=== PATIENT | male | born 1995 | race Caucasian/White ===

== ENCOUNTER 2018-10-15 00:47 | Emergency (ER) | payer SELFPAY ==
--- NOTE | 2018-10-15 01:37 | PDOC ---
History of Present Illness - General Chief Complaint: Palpitations Stated Complaint: CHEST PAIN,PALPITATIONS Time Seen by Provider: 10/15/18 01:37 History Source: Patient Exam Limitations: No Limitations - History of Present Illness Initial Comments: 10/15/18 02:20 23 year old male with PMH anxiety/panic disorder, chronic lymes disease, nicotine smoker (vape) presented to ED for chest pain, palpitations, shortness of breath x3 days. Pt stated his symptoms occur after vaping, and he vapes >10X a day. He stated he currently smokes 20 mg and is trying to decrease his dose. Pt stated his symptoms are intermittent. Pt stated his chest pain is left sided , intermittent, nonradiating, no alleviating factors, aggravated by nicotine. Allergies: NKDA Past History - Past Medical History Allergies/Adverse Reactions: Allergies Allergy/AdvReac Type Severity Reaction Status Date / Time No Known Allergies Allergy Verified 10/15/18 01:47 - Immunization History Immunization Up to Date: Yes - Suicide/Smoking/Psychosocial Hx Smoking Status: Yes Smoking History: Current some day smoker Years of Tobacco Use: 1 Number of Cigarettes Smoked Daily: 2 Review of Systems - Review of Systems Able to Perform ROS?: Yes Comments:: 10/15/18 02:26 General: admitted to generalized weakness. denied fever, chills, night sweats. HEENT: denied sore throat, rhinorrhea, ear pain. Heart: admitted to chest pain, palpitations. denied syncope, lower extremity swelling, diaphoresis. Respiratory: admitted to shortness of breath. denied cough, sputum production, hemoptysis. Abdomen: denied abdominal pain, nausea, vomiting, diarrhea, constipation, blood in stool. : denied dysuria, increased urinary frequency, hematuria, urinary incontinence , flank pain. Back: denied back pain. Musculoskeletal: denied joint pain, muscle pain, joint swelling. Neurological: denied headache, dizziness, numbness, tingling, weakness. Skin: denied rash, laceration, abrasion. *Physical Exam - Physical Exam Comments: 10/15/18 02:27 Constitutional: Well-nourished, Well-developed, appearing stated age. slender, tall. HEENT: head is normocephalic, atraumatic. EOMI. PERRLA. Neck: supple. Full ROM. Heart: regular rhythm. no murmurs, rubs or gallops. Lungs: clear to auscultation bilaterally. no crackles, rhonchi or wheezing. no stridor. Abdomen: soft, nontender. normal bowel sounds. no rebound, guarding, masses. Extremities: Peripheral pulses intact. No lower extremity edema. Neurological: CN 2-12 grossly intact. Moves all four extremities. Psych: awake, alert, oriented x3. Follows commands. Answers questions appropriately. ED Treatment Course - LABORATORY CBC & Chemistry Diagram: 10/15/18 01:46 10/15/18 01:46 Medical Decision Making - Medical Decision Making 10/15/18 02:28 23 year old male with above PMh presented to ED for chest pain, shortness of breath, palpitations. Initial Vital Signs Temp Pulse Resp BP Pulse Ox 98.0 F 90 18 143/96 99 10/15/18 00:48 10/15/18 00:48 10/15/18 00:48 10/15/18 00:48 10/15/18 00:48 Afebrile. No tachycardia. No tachypnea. Mild hypertension. No hypoxia on room air. EKG performed at 0053: rate 88, regular rhythm, normal axis, normal intervals, no acute ST changes. Labs ordered: CBC, BMP, TSH Imaging ordered: CXR Medications ordered: none 10/15/18 02:40 CBC WBC 6.1 K/mm3 (4.0-10.0) 10/15/18 01:46 RBC 4.46 M/mm3 (4.00-5.60) 10/15/18 01:46 Hgb 14.3 GM/dL (11.7-16.9) 10/15/18 01:46 Hct 40.8 % (35.4-49) 10/15/18 01:46 MCV 91.4 fl (80-96) 10/15/18 01:46 MCH 32.2 pg (25.7-33.7) 10/15/18 01:46 MCHC 35.2 g/dl (32.0-35.9) 10/15/18 01:46 RDW 13.0 % (11.9-15.9) 10/15/18 01:46 Plt Count 209 K/MM3 (134-434) 10/15/18 01:46 MPV 7.0 fl (7.5-11.1) L 10/15/18 01:46 Absolute Neuts (auto) 3.5 K/mm3 (1.5-8.0) 10/15/18 01:46 Neutrophils % 56.5 % (42.8-82.8) 10/15/18 01:46 Lymphocytes % 28.7 % (8-40) 10/15/18 01:46 Monocytes % 7.3 % (3.8-10.2) 10/15/18 01:46 Eosinophils % 6.7 % (0-4.5) H 10/15/18 01:46 Basophils % 0.8 % (0-2.0) 10/15/18 01:46 Nucleated RBC % 0 % (0-0) 10/15/18 01:46 No leukocytosis. No anemia. Increased eosinophils. CMP Sodium 139 mmol/L (136-145) 10/15/18 01:46 Potassium 3.7 mmol/L (3.5-5.1) 10/15/18 01:46 Chloride 106 mmol/L (98-107) 10/15/18 01:46 Carbon Dioxide 24 mmol/L (21-32) 10/15/18 01:46 Anion Gap 9 MMOL/L (8-16) 10/15/18 01:46 BUN 21 mg/dL (7-18) H 10/15/18 01:46 Creatinine 0.9 mg/dL (0.55-1.3) 10/15/18 01:46 Creat Clearance w eGFR > 60 (>60) 10/15/18 01:46 Random Glucose 85 mg/dL (74-106) 10/15/18 01:46 Calcium 8.7 mg/dL (8.5-10.1) 10/15/18 01:46 TSH 1.92 uIU/ml (0.358-3.74) 10/15/18 01:46 Normal electrolytes. No ROMINA. Normal TSH. 10/15/18 03:41 CXR: sharp costophrenic angles. no large pneumothorax. no cardiomegaly. no infiltrate. Pt reassessed, reported 0/10 chest pain, no palpitations. Pt stated he is feeling better and would like to go home. Pt has been observed in the ED for 3 hours. EKG normal, labs normal, CXR normal. Pt to be discharged and follow up with PCP. Pt informed of cardiovascular risks of smoking and advised to stop using the vaporizer. 10/15/18 20:45 CXR official report: negative for acute pathology. *DC/Admit/Observation/Transfer Diagnosis at time of Disposition: Chest pain, Palpitations - Discharge Dispostion Disposition: HOME Condition at time of disposition: Improved Decision to Admit order: No - Referrals - Patient Instructions Printed Discharge Instructions: DI for Palpitations Additional Instructions: Your lab work was normal. Your EKG was normal. Your chest X-ray was normal. Follow up with your primary care doctor in 1-2 days. Do not use the vaporizer to smoke. Consult with your primary care doctor to discuss stopping nicotine use. Nicotine use over time will damage your lungs permanently and puts you at an increased risk for cancer. Return to the Emergency Department for chest pain , shortness of breath, palpitations, racing heart, passing out, lightheadedness , or any other new, worsening or concerning symptoms. - Post Discharge Activity
[2018-10-15 01:47] VITALS: BP 143/96; PULSE 90; TEMP 98; BMI 16.2
[2018-10-15 02:01] LABS: BASO % 0.8 % (0-2.0); EOS % 6.7 % (0-4.5); HEMATOCRIT 40.8 % (35.4-49); HEMOGLOBIN 14.3 GM/dL (11.7-16.9); LYMPH % 28.7 % (8-40); MCH 32.2 pg (25.7-33.7); MCHC 35.2 g/dl (32.0-35.9); MEAN CELL VOLUME 91.4 fl (80-96); MONO % 7.3 % (3.8-10.2); NEUT % 56.5 % (42.8-82.8); PLATELET COUNT 209 K/MM3 (134-434); RBC 4.46 M/mm3 (4.00-5.60); WHITE BLOOD COUNT 6.1 K/mm3 (4.0-10.0)
--- NOTE | 2018-10-15 02:28 | PDOC ---
Attending Attestation - Resident Resident Name: Rebekah Freitas - ED Attending Attestation I have performed the following: I have examined & evaluated the patient, The case was reviewed & discussed with the resident, I agree w/resident's findings & plan, Exceptions are as noted - HPI HPI: 10/15/18 05:44 23M c/o episodes of chest pain, palpitations, sob a/w vaping. Episodes are self -limited and triggered by smoking. No other complaints. Pt currently comfortable - Physicial Exam PE: 10/15/18 05:44 Agree with exam as documented by resident - Medical Decision Making 10/15/18 05:45 Palpitations, cp, sob a/w inhaled nicotine, likely drug effect, consider anxiety , electrolyte abnormality, thyroid pathology, arrythmia f/u labs, cxr, ekg
[2018-10-15 02:37] LABS: ANION GAP 9 MMOL/L (8-16); BLOOD UREA NITROGEN 21 mg/dL (7-18); CALCIUM 8.7 mg/dL (8.5-10.1); CHLORIDE 106 mmol/L (98-107); CO2 24 mmol/L (21-32); CREATININE 0.9 mg/dL (0.55-1.3); GLUCOSE,RANDOM 85 mg/dL (74-106); POTASSIUM 3.7 mmol/L (3.5-5.1); SODIUM 139 mmol/L (136-145)
--- NOTE | 2018-10-15 09:09 | EKG ---
Test Reason : Blood Pressure : / mmHG Vent. Rate : 088 BPM Atrial Rate : 088 BPM P-R Int : 122 ms QRS Dur : 088 ms QT Int : 366 ms P-R-T Axes : 062 065 060 degrees QTc Int : 442 ms NORMAL SINUS RHYTHM NORMAL ECG NO PREVIOUS ECGS AVAILABLE Confirmed by SARIKA LEACH, SHANNON ([id number]) on 10/15/2018 9:09:20 AM Referred By: Confirmed By:SHANNON BAUM MD
== END 2018-10-15 03:56 | disposition home or self-care (01) ==
LOC: JER 00:47
DX: R07.9 Chest pain, unspecified (principal); R00.2 Palpitations; F41.8 Other specified anxiety disorders; F41.0 Panic disorder [episodic paroxysmal anxiety]; A69.20 Lyme disease, unspecified
CPT/HCPCS: 36415; 71046-TC-FY; 80048; 84443; 85025; 93005; 93010; 99283-25